=== PATIENT | female | born 1985 | race Caucasian/White ===

== ENCOUNTER 2017-08-14 22:49 | Emergency (ER) | payer SELFPAY ==
--- NOTE | 2017-08-14 23:51 | ED Physician Documentation ---
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 Then she had vag bleeding for about an hour. Pain continued although it has become more midline and pelvic. Feels like pressure, like giving . Tylenol earlier today, and took 800 mg ibuprofen at 1800. LNMP 07/29/17. Last normal bowel movement yesterday. No other modifying factors or associated signs. Onset: hours Duration: constant Context: denies: out of country travel, bad food Quality: other (above) - ROS CONST: no problems GI/: denies: problems urinating - SOCIAL HX Smoking History: cigarettes - FAMILY HX Family History: no significant history - PAST HX Past History: none Surgeries/Procedures: cholecystectomy, BLT, other (tonsillectomy) Home Medications: Ambulatory Orders Medication Instructions Recorded NK [NK] 08/14/17 Allergies/Adverse Reactions: Allergies Allergy/AdvReac Type Severity Reaction Status Date / Time Penicillins Allergy Intermediate Rash Verified 08/14/17 23:54 - VITAL SIGNS Vital Signs: Vital Signs Temp Pulse Resp BP Pulse Ox 98.5 F 56 L 18 127/77 95 08/14/17 22:50 08/14/17 22:50 08/14/17 22:50 08/14/17 22:50 08/14/17 22:50 - REVIEWED ASSESSMENTS Nursing Assessment Reviewed: Yes Vitals Reviewed: Yes Progress - Progress Progress: Report Submission Date: Aug 15, 2017 12:18:19 AM CDT Patient Study Name: RANJEET MARIO Date: Aug 14, 2017 11:53:09 PM CDT Modality Type: CT\SR Gender: F Description: CT ABD PELVIS W/O CO : 89 Institution: [facility] Physician: KELSI LUCIANO CT of the abdomen and pelvis without contrast Clinical history: SUDDEN ONSET ABD PAIN, VAGINAL BLEEDING Technique: CT of the abdomen and pelvis was performed without oral or intravenous administration of contrast. Sagittal and coronal reconstructions are performed by the technologist. Findings: Visualized lung bases are clear. Liver and spleen demonstrate normal attenuation without focal defect. Gallbladder is surgically absent. There is no pancreatic abnormality. There is a hypodense nodule in the left adrenal gland consistent with lipid rich adenoma. The right adrenal is unremarkable. The kidneys are of normal size, shape and position. There is no retroperitoneal mass or significant adenopathy. There are surgical clips from previous tubal ligation. Structures related to the gastrointestinal tract are unremarkable. Uterus and adnexal structures are within normal limits. There is a trace amount of free fluid in the pelvis that appears physiologic. Impression: 1. Postoperative changes. 2. Trace amount of free fluid in the pelvis appears physiologic. Electronically signed on Aug 15, 2017 12:18:19 AM CDT by: Harjinder Jerez pain better after ibuprofen. She drove herself to the ER. ED Results Lab/Radiology - Orders Orders: ED Orders Category Date Time Status CT ABDOMEN PELVIS S [CT ABD & PELVIS W/O CON] Stat Exams 08/14/17 Taken Ketorolac Tromethamine [Toradol] Med 08/14/17 23:44 Discontinued 60 mg IM NOW ONE Abdominal Pain Physical Exam - Physical Exam General Appearance: alert, moderate distress EENT: eye inspection normal, ENT inspection normal NECK: normal inspection, supple RESPIRATORY: breath sounds normal CVS: reg rate & rhythm, heart sounds normal ABDOMEN: soft, normal bowel sounds, tenderness (marked low, antoine and midline) PELVIC EXAM: normal external exam, normal adnexa, no cerv. motion tender, no masses. No: vaginal bleeding BACK: normal inspection, no CVA tenderness SKIN: warm/dry, normal color EXTREMITIES: normal range of motion, no evidence of injury NEURO: CN's nml as tested, motor nml, sensation nml Vital Signs: Vital Signs Temp Pulse Resp BP Pulse Ox 98.5 F 56 L 18 127/77 95 08/14/17 22:50 08/14/17 22:50 08/14/17 22:50 08/14/17 22:50 08/14/17 22:50 Discharge Clincal Impression: Abdominal pain Qualifiers: Abdominal location: unspecified location Qualified Code(s): R10.9 - Unspecified abdominal pain Referrals: Suki Patricia FNP [Primary Care Provider] - 2 Days Additional Instructions: The CT scan showed a small amount of free fluid in the abdomen. I suspect you had an ovarian cyst that ruptured. Return to the ER if your condition worsens. Follow up with your provider in the next 7-10 days. Condition: Fair Disposition: 01 HOME, SELF-CARE Decision to Admit: NO Decision Time: 00:25
[2017-08-14] MEDS: KETOROLAC TROMETHAMINE 60 MG/2 ML VIAL IM ONE (23:53)
[2017-08-15] MEDS: HYDROcodone /APAP 5/325 1 EACH TABLET PO ONE (00:40)
[2017-08-15 00:47] VITALS: BP 103/52
[2017-08-15 06:15] LABS: APPEARANCE,URINE CLEAR (CLEAR); COLOR,URINE YELLOW (YELLOW); OCCULT BLOOD,URINE TRACE-INTACT (NEGATIVE); URINE HCG NEGATIVE (NEGATIVE); UROBILINOGEN URINE 0.2 Eu (0.2-1.0)
--- NOTE | 2017-08-15 06:24 | Diagnostic Imaging Report ---
KELSI LUCIANO [facility] [address] [facility] [address] [place], [place]. [address] Report Submission Date: Aug 15, 2017 12:18:19 AM CDT Patient Study Name: RANJEET MARIO Date: Aug 14, 2017 11:53:09 PM CDT Modality Type: CT\SR Gender: F Description: CT ABD PELVIS W/O CO : 89 Institution: [facility] Physician: KELSI LUCIANO CT of the abdomen and pelvis without contrast Clinical history: SUDDEN ONSET ABD PAIN, VAGINAL BLEEDING Technique: CT of the abdomen and pelvis was performed without oral or intravenous administration of contrast. Sagittal and coronal reconstructions are performed by the technologist. Findings: Visualized lung bases are clear. Liver and spleen demonstrate normal attenuation without focal defect. Gallbladder is surgically absent. There is no pancreatic abnormality. There is a hypodense nodule in the left adrenal gland consistent with lipid rich adenoma. The right adrenal is unremarkable. The kidneys are of normal size, shape and position. There is no retroperitoneal mass or significant adenopathy. There are surgical clips from previous tubal ligation. Structures related to the gastrointestinal tract are unremarkable. Uterus and adnexal structures are within normal limits. There is a trace amount of free fluid in the pelvis that appears physiologic. Impression: 1. Postoperative changes. 2. Trace amount of free fluid in the pelvis appears physiologic. Electronically signed on Aug 15, 2017 12:18:19 AM CDT by: Harjinder GRIDER
== END 2017-08-15 00:45 | disposition home or self-care (01) ==
LOC: ED 22:49
DX: R10.9 Unspecified abdominal pain (principal)
CPT/HCPCS: 74176; 81002; 81025; A9270; J1885; 96372; 99284